=== PATIENT | female | born 1980 ===

== ENCOUNTER → 2017-09-14 | Outpatient (REF) | LOC: ZLAB.WCH 09:23 | DX: Z01.89 Encounter for other specified special examinations (principal) ==

== ENCOUNTER → 2024-01-04 | Outpatient (CLI) | payer MEDICAID ==
[~2024-01-04] MED LIST: Iohexol 300 - 100 ML VIAL IV ONE; NS 100 ML IV SCH
== END ==
LOC: COL.RAD 14:41
DX: N80.9 Endometriosis, unspecified (principal)
CPT/HCPCS: Q9967